=== PATIENT | female | born 1985 | race Caucasian/White ===

== ENCOUNTER 2018-06-09 14:57 | Outpatient (CLI) | payer BC ==
--- NOTE | 2018-06-09 16:54 | MRI ---
MRI BRAIN WITH AND WITHOUT CONTRAST: 06/09/2018 HISTORY: A 33-year-old female with H02.401, ptosis of the eyelid, right. TECHNIQUE: Multiple sequences obtained in axial, sagittal, and coronal planes; pre and post IV injection of gado linium-based contrast agent: MultiHance 12 mL. In addition to standard whole brain sequences, 3D axial CISS sequence was performed, as well as thin slice, fat suppressed, post Gadolinium T1 VIBE, through the basal cisterns and posterior fossa. FINDINGS: The ventricles are normal in size and configuration. There is no major intraaxial signal abnormality , restricted diffusion, abnormal intraaxial enhancement, mass, midline shift or any other mass effect , recent intraaxial hemorrhage, or extraaxial fluid collection. There is no evidence of a posterior communicating artery aneurysm. There is a prominent, tortuous blood vessel that extends and makes a hairpin turn deep in the interpeduncular cistern and has a component that is oriented transversely in the right prepontine cistern, abutting the ventral surface of the daniel. There is no evidence of int racranial aneurysm at the basal cisterns. The cavernous sinuses, Meckel's caves, and orbital apices are clear. IMPRESSION: 1. The brain is normal. 2. An atypical blood vessel, an anatomical variant, in the right prepontine cistern and interpeduncu lar cistern. It is uncertain whether or not this is related to the ptosis. The right third cranial n erve is not affected. 3. Consider referral to an incident handler or a neuroophthalmologist. [email or web address][] POS: [facility]
== END 2018-06-09 14:58 | disposition home or self-care (01) ==
LOC: MRI 14:57
PROVIDERS: ATTEND Family Medicine
DX: H02.401 Unspecified ptosis of right eyelid (principal)
CPT/HCPCS: 70553